=== PATIENT | male | born 1945 | race Caucasian/White ===

== ENCOUNTER 2020-10-05 06:42 | Day surgery (SDC) | payer OTHER ==
[~2020-10-05] VITALS: Ht 162.6 cm; Wt 95.7 kg
[~2020-10-05 06:42] MED LIST: ALLO100 PO; AMLO5 PO; ATOR10 PO; ATOR20 PO; Amox Tr-K Clv1 EAC2 PO; BACLOFEN5 M5 PO; CARV3.125 PO; CARV6.25 PO; CHOL10002 PO; CLIN1TS; CLOBET30L TOP; CLOP75 PO; CODEINE PO; COLCHICINE0.6 MG PO; COLCRYS0.6 MG PO; CYAN500 PO; Fish Oil 10001000 MG PO; GABA800 PO; HYDCHL25 PO; INS70/30I SC; LOPE2C PO; LOSA50 PO; MICROZIDE12.5 M1 PO; ONDA4ODT SL; PANT40 PO; POLY500 PO; Prozac20 MG PO; RAME8 PO; RANI150 PO; TYLECOD3 PO; XANAX PO
[2020-10-05] MEDS ORDERED: CODE30 PO (07:14)
--- NOTE | 2020-10-05 07:44 | NUR ---
History, Chart, Medications and Allergies reviewed before start of procedure. Patient confirms NPO status and agrees with scheduled surgery. Patient is a poor historian. Lungs clear T/O to Auscultation.
--- NOTE | 2020-10-05 07:53 | NUR ---
KNEE HIGH BRIANA HOSE AND CALF PAS APPLIED TO RLE.
--- NOTE | 2020-10-05 08:03 | NUR ---
NOZIN NASAL SHOE SALESMAN X3 AMPULES USED TO CLEAN NARES BILAT PER DR MARINO' ORDER.
--- NOTE | 2020-10-05 08:17 | NUR ---
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
--- NOTE | 2020-10-05 09:03 | NUR ---
PATIENT UP TO BR TO VOID.
--- NOTE | 2020-10-05 14:46 | NUR ---
PT ARRIVE FROM PACU AT APPROX 1215. PT WAS SHIVERING AND REPORTED BEING COLD. WARM BLANKETS PROVIDED. PT ARRIVED ON 3L OXYGEN, GUSTAVO OBSERVING HIM THE PATIENT WOULD FALL ASLEEP WHILE ANSWERING QUESTIONS. PT SHOWED APNEIC PERIODS WHILE OBSERVING HIM RESPIRATIONS WERE 10. SATS REMAINED 98% OR HIGHER. PT HAS HX OF SLEEP APNEA BUT DOES NOT WEAR CPAP. CONT BIOX APPLIED TO MONITOR OXYGEN SATURATION LEVEL. PT COUGHS WHILE SWALLOWING WATER AND REPORTS THAT THAT IS NORMAL FOR HIM. HELD FLUIDS UNTIL PATIENT WAS MORE ALERT. PT CURRENTLY WORKING WITH THERAPY AT THIS TIME. REPORTS PAIN BETTER WITH MOVEMENT. POLAR PATRICIA IS IN PLACE, SCD'S ON.
--- NOTE | 2020-10-05 16:37 | NUR ---
PTS DAUGHTER BROUGHT PT A REGULAR PEPSI. DISCUSSED A DIET INSTEAD DUE TO H/O DIABETES. STATES HE DOES NOT LIKE DIET AND ONLY DRINKS A LITTLE REGULAR ONCE IN AWHILE.
--- NOTE | 2020-10-05 16:55 | NUR ---
SHIFT SUMMARY S/P LEFT TOTAL KNEE ARTHROPLASTY. PT ARRIVED TO FLOOR CONFUSED AND APNEIC ON 3L O2. CURRENTLY PT IS A&O X4. CURRENTLY SLEEPING IN RECLINER AND ON 2L O2 NASAL CANNULA. O2 SATS MAINTAINING IN MID TO HIGH 90'S. WORKED WITH PHYSICAL THERAPY TODAY AND TOLERATED WELL. PTS PAIN WELL MAINTAINED PER EMAR. SCD'S IN PLACE. POLAR PACK APPLIED TO LEFT KNEE. PT TRANSFERRED WELL TO BATHROOM WITH STANDBY ASSIST AND WAS ABLE TO VOID. TOLERATED JELLO, CRACKERS, AND WATER.
[2020-10-06 04:38] LABS: BASOPHILS ABSOLUTE AUTO 0.02 K/mm3 (0.00-0.23); BASOPHILS PERCENT AUTO 0 % (0-2); EOSINOPHILS PERCENT AUTO 0 % (0-6); Hematocrit 40.8 % (37.0-53.0); Hemoglobin 13.7 g/dL (13.5-17.5); IMMATURE GRAN ABSOLUTE AUTO 0.06 K/mm3 (0.00-0.10); IMMATURE GRAN PERCENT AUTO 0 % (0-1); LYMPHOCYTES ABSOLUTE AUTO 0.58 K/mm3 (0.84-5.20); LYMPHOCYTES PERCENT AUTO 4 % (21-46); MONOCYTES ABSOLUTE AUTO 0.84 K/mm3 (0.16-1.47); MONOCYTES PERCENT AUTO 6 % (4-13); Mean Corpuscular HGB 29.9 pg (26.0-34.0); Mean Corpuscular HGB Conc 33.6 g/dL (31.5-36.5); Mean Corpuscular Volume 89 fL (80-100); Mean Platelet Volume 10.2 fL (9.1-12.4); NEUTROPHILS ABSOLUTE AUTO 12.06 K/mm3 (1.96-9.15); NEUTROPHILS PERCENT AUTO 89 % (41-73); Platelet Count 176 K/mm3 (150-400); RDW Coefficient Variation 14.2 % (11.7-14.2); RDW Standard Deviation 46.4 fL (35.1-46.3); Red Blood Cell Count 4.58 M/mm3 (4.30-5.90); White Blood Cell Count 13.56 K/mm3 (4.00-11.30)
[2020-10-06 04:59] LABS: Anion Gap 7 mmol/L (6-16); Blood Urea Nitrogen 15 mg/dL (8-24); Bun/Creatinine Ratio 14.7 (12.0-20.0); CO2, Blood 25 mmol/L (21-32); Calcium, Blood 8.1 mg/dL (8.5-10.1); Chloride, Blood 108 mmol/L (98-108); Creatinine, Blood 1.02 mg/dL (0.60-1.20); Glomerular Filtration Rate >60 (60-); Glucose, Blood 167 mg/dL (70-99); Potassium, Blood 4.5 mmol/L (3.5-5.5); Sodium, Blood 140 mmol/L (136-145)
--- NOTE | 2020-10-06 05:44 | NUR ---
SHIFT SUMMARY POD1 L TKA. VSS. AOX4. PT REPORTS MINIMAL PAIN T/O SHIFT, 2/10 PAIN LEVEL. TOLERATING PO INTAKE, DENIES NAUSEA AND VOMITING. VOIDING ADEQUATELY, DENIES DIFFICULTY/ISSUES. PT TOLERATING AMBULATION TO BATHROOM WITH SBA WITH FWW AND GB. PT DENIES N/T. L KNEE WITH TARAN WRAP, CDI. SCD'S IN PLACED AND POLAR PACK. CALL LIGHT WITHIN REACH. WILL PROVIDE REPORT TO ONCOMING NURSE.
[2020-10-06] MEDS ORDERED: Percocet 5-3251 EACH PO (10:25)
--- NOTE | 2020-10-06 12:51 | NUR ---
SHIFT SUMMARY PT PROVIDED WITH WRITTEN AND VERBAL DISCHARGE INSTRUCTIONS, HE REPORTED UNDERSTANDING. DRESSINGS, SCRIPTS AND ADDITIONAL BRIANA HOSE PROVIDED. PT MEETING ALL GOALS, VOIDING, ALEJANDAR PO, CLEARED THERAPY, PAIN MANAGED AND VSS. PT OFF O2 AND O2 SATURATION 97% ON RA. PT SENT HOME WITH INCENTIVE SPIROMETER AND EDUCATED TO USE. HOME BLOOD THINNER IS PLAVIX, CLARIFIED WITH REJI JAY THAT PT SHOULD CONTINUE AT HOME WITH NO ADDITIONAL BLOOD THINNERS. PT'S DAUGHTER TAYLOR WHO IS CARING FOR HIM WAS NOTIFIED THAT HE SHOULD CONTINUE PLAVIX. PT ESCORTED OUT IN W/C BY JANET STUDENT NURSE.
--- NOTE | 2020-10-06 12:57 | NUR ---
DISCHARGE SUMMARY PT DEMONSTRATED UNDERSTANDING AFTER DISCHARGE TEACHING.PT VSS, PAIN WAS MANAGED,TOLERATED PO AND VOIDED BEFORE DISCHARGE.
== END 2020-10-06 12:55 | disposition home or self-care (01) ==
LOC: ORSCMMR 06:42 → ORD 08:15 → ORSCMMR 08:15 → SURS 12:16 → ORSCMMR 10-06 12:55
PROVIDERS: Orthopaedic Surgery
PROC: 0SRD0JA Replacement of Left Knee Joint with Synthetic Substitute, Uncemented, Open Approach (ICD-10-PCS; principal; 2020-10-05 08:15)
DX: M17.12 Unilateral primary osteoarthritis, left knee (principal); I10 Essential (primary) hypertension; E78.5 Hyperlipidemia, unspecified; I25.2 Old myocardial infarction; G47.33 Obstructive sleep apnea (adult) (pediatric); E11.9 Type 2 diabetes mellitus without complications; Z86.73 Personal history of transient ischemic attack (TIA), and cerebral infarction without residual deficits; E66.01 Morbid (severe) obesity due to excess calories; Z68.36 Body mass index [BMI] 36.0-36.9, adult; G51.0 Bell's palsy; Z79.899 Other long term (current) drug therapy
CPT/HCPCS: 36415; 73560-LT; 80048; 82947; 85025; 94762; 97110; 97116; 97162; A9270; A9270-GY; C1776; J0171; J0690; J0735; J1100; J1885; J2250; J2405; J2704; J2795; J3010; J7120

== ENCOUNTER 2020-10-08 20:00 | Inpatient (IN) | payer OTHER ==
[~2020-10-08] VITALS: Ht 162.6 cm; Wt 96.0 kg
[~2020-10-08 20:00] MED LIST changes: +CODE30 PO; +Percocet 5-3251 EACH PO
[2020-10-08 20:37] LABS: BASOPHILS ABSOLUTE AUTO 0.02 K/mm3 (0.00-0.23); BASOPHILS PERCENT AUTO 0 % (0-2); EOSINOPHILS ABSOLUTE AUTO 0.07 K/mm3 (0.00-0.68); EOSINOPHILS PERCENT AUTO 1 % (0-6); Hematocrit 39.9 % (37.0-53.0); Hemoglobin 13.4 g/dL (13.5-17.5); IMMATURE GRAN ABSOLUTE AUTO 0.06 K/mm3 (0.00-0.10); IMMATURE GRAN PERCENT AUTO 1 % (0-1); LYMPHOCYTES ABSOLUTE AUTO 0.65 K/mm3 (0.84-5.20); LYMPHOCYTES PERCENT AUTO 7 % (21-46); MONOCYTES ABSOLUTE AUTO 0.84 K/mm3 (0.16-1.47); MONOCYTES PERCENT AUTO 9 % (4-13); Mean Corpuscular HGB 29.9 pg (26.0-34.0); Mean Corpuscular HGB Conc 33.6 g/dL (31.5-36.5); Mean Corpuscular Volume 89 fL (80-100); Mean Platelet Volume 9.9 fL (9.1-12.4); NEUTROPHILS ABSOLUTE AUTO 7.91 K/mm3 (1.96-9.15); NEUTROPHILS PERCENT AUTO 83 % (41-73); Platelet Count 153 K/mm3 (150-400); RDW Coefficient Variation 14.2 % (11.7-14.2); RDW Standard Deviation 46.7 fL (35.1-46.3); Red Blood Cell Count 4.48 M/mm3 (4.30-5.90); White Blood Cell Count 9.55 K/mm3 (4.00-11.30)
[2020-10-08 20:58] LABS: Alanine Aminotransfer (ALT/SGP 26 U/L (12-78); Albumin, Blood 3.2 g/dL (3.4-5.0); Albumin/Globulin Ratio 1.1 (0.8-1.8); Alk Phos 103 U/L (50-136); Anion Gap 3 mmol/L (6-16); Aspartate Aminotrans (AST/SGOT 17 U/L (12-37); Bilirubin, Total 0.9 mg/dL (0.1-1.0); Blood Urea Nitrogen 16 mg/dL (8-24); Bun/Creatinine Ratio 18.3 (12.0-20.0); CO2, Blood 30 mmol/L (21-32); Calcium, Blood 8.7 mg/dL (8.5-10.1); Chloride, Blood 104 mmol/L (98-108); Creatinine, Blood 0.88 mg/dL (0.60-1.20); Glomerular Filtration Rate >60 (60-); Glucose, Blood 165 mg/dL (70-99); Potassium, Blood 4.1 mmol/L (3.5-5.5); Sodium, Blood 137 mmol/L (136-145); Total Protein, Blood 6.2 g/dL (6.4-8.2)
[2020-10-08 22:49] LABS: International Normalized Ratio 0.99; Prothrombin Time Results 10.7 Sec (9.7-11.5)
[2020-10-08 23:47] LABS: Source, Urine Catheter
[2020-10-08 23:49] LABS: Bilirubin, Urine Neg (Neg); Blood, Urine Neg (Neg); Glucose Qualitative, Urine Neg (Neg); Ketones, Urine Neg (Neg); Leukocyte Esterase, Urine Neg (Neg); Nitrite, Urine Neg (Neg); Protein, Urine Neg (Neg); Specific Gravity, Urine 1.015 (1.003-1.022); Urobilinogen, Urine NORM (Normal)
[2020-10-09] LABS: Appearance, Urine Clear (Clear); Color, Urine Yellow (P-Yellow)
[2020-10-09 13:16] LABS: BASOPHILS ABSOLUTE AUTO 0.02 K/mm3 (0.00-0.23); BASOPHILS PERCENT AUTO 0 % (0-2); EOSINOPHILS ABSOLUTE AUTO 0.11 K/mm3 (0.00-0.68); EOSINOPHILS PERCENT AUTO 2 % (0-6); Hematocrit 35.6 % (37.0-53.0); Hemoglobin 11.9 g/dL (13.5-17.5); IMMATURE GRAN ABSOLUTE AUTO 0.04 K/mm3 (0.00-0.10); IMMATURE GRAN PERCENT AUTO 1 % (0-1); LYMPHOCYTES ABSOLUTE AUTO 0.63 K/mm3 (0.84-5.20); LYMPHOCYTES PERCENT AUTO 10 % (21-46); MONOCYTES PERCENT AUTO 8 % (4-13); Mean Corpuscular HGB Conc 33.4 g/dL (31.5-36.5); Mean Corpuscular Volume 90 fL (80-100); Mean Platelet Volume 9.8 fL (9.1-12.4); NEUTROPHILS ABSOLUTE AUTO 5.25 K/mm3 (1.96-9.15); NEUTROPHILS PERCENT AUTO 80 % (41-73); Platelet Count 137 K/mm3 (150-400); RDW Coefficient Variation 14.1 % (11.7-14.2); RDW Standard Deviation 46.9 fL (35.1-46.3); Red Blood Cell Count 3.97 M/mm3 (4.30-5.90); White Blood Cell Count 6.55 K/mm3 (4.00-11.30)
[2020-10-09 13:29] LABS: Anion Gap 3 mmol/L (6-16); Blood Urea Nitrogen 17 mg/dL (8-24); Bun/Creatinine Ratio 18.2 (12.0-20.0); CO2, Blood 30 mmol/L (21-32); Calcium, Blood 8.3 mg/dL (8.5-10.1); Chloride, Blood 105 mmol/L (98-108); Creatinine, Blood 0.93 mg/dL (0.60-1.20); Glomerular Filtration Rate >60 (60-); Glucose, Blood 201 mg/dL (70-99); Potassium, Blood 4.1 mmol/L (3.5-5.5); Sodium, Blood 138 mmol/L (136-145)
--- NOTE | 2020-10-09 17:30 | NUR ---
SHIFT SUMMARY PT A/O X4. VITALS STABLE. MEDICATED FOR PAIN PER EMAR. PT REPORTS THAT PAIN IS MORE LOCALIZED TO THE SURGICAL SITE AT THIS TIME. PT UP IN WITH WALKER GAITBELT AND ONE ASSIST. WILL REPORT TO ONCOMING RN.
--- NOTE | 2020-10-09 21:11 | NUR ---
PT AGREES TO ALLOW STUDENT TO PARTICIPATE IN CARE
--- NOTE | 2020-10-10 05:16 | NUR ---
SHIFT SUMMARY: CELLULITIS LEFT KNEE PAIN AND ABX MANAGEMENT PT IS A&OX4 OOB BRP 1P ASSIST W/ FWW,IV RIGHT FA PATENT INFUSING WELL NO SS/SSX OF ACUTE DISTRESS, DRESSING C/D/I. LEFT KNEE HAS AQUACELL DRESSING C/D/I WITH OUTLINE OF PARAMETERS INKED, SMALL BAND AID RIGHT LOWER BACK PT REPORT SKIN TAG REMOVAL C/D/I, CALL LIGHT WITHIN REACH PT AWARE OF LIMITATIONS WILL NOTIFY STAFF FOR ASSISTANCE.
[2020-10-10 11:41] LABS: Vancomycin, Trough 14.6 ug/mL (5.0-10.0)
[2020-10-10 13:39] LABS: BASOPHILS ABSOLUTE AUTO 0.02 K/mm3 (0.00-0.23); BASOPHILS PERCENT AUTO 0 % (0-2); EOSINOPHILS ABSOLUTE AUTO 0.22 K/mm3 (0.00-0.68); EOSINOPHILS PERCENT AUTO 3 % (0-6); Hematocrit 36.8 % (37.0-53.0); Hemoglobin 12.1 g/dL (13.5-17.5); IMMATURE GRAN ABSOLUTE AUTO 0.04 K/mm3 (0.00-0.10); IMMATURE GRAN PERCENT AUTO 1 % (0-1); LYMPHOCYTES ABSOLUTE AUTO 0.74 K/mm3 (0.84-5.20); LYMPHOCYTES PERCENT AUTO 11 % (21-46); MONOCYTES ABSOLUTE AUTO 0.71 K/mm3 (0.16-1.47); MONOCYTES PERCENT AUTO 10 % (4-13); Mean Corpuscular HGB 29.7 pg (26.0-34.0); Mean Corpuscular HGB Conc 32.9 g/dL (31.5-36.5); Mean Corpuscular Volume 90 fL (80-100); Mean Platelet Volume 9.5 fL (9.1-12.4); NEUTROPHILS ABSOLUTE AUTO 5.28 K/mm3 (1.96-9.15); NEUTROPHILS PERCENT AUTO 75 % (41-73); Platelet Count 169 K/mm3 (150-400); RDW Standard Deviation 46.3 fL (35.1-46.3); Red Blood Cell Count 4.08 M/mm3 (4.30-5.90); White Blood Cell Count 7.01 K/mm3 (4.00-11.30)
[2020-10-10 13:56] LABS: Anion Gap 1 mmol/L (6-16); Blood Urea Nitrogen 16 mg/dL (8-24); Bun/Creatinine Ratio 15.7 (12.0-20.0); CO2, Blood 32 mmol/L (21-32); Calcium, Blood 8.2 mg/dL (8.5-10.1); Chloride, Blood 102 mmol/L (98-108); Creatinine, Blood 1.02 mg/dL (0.60-1.20); Glomerular Filtration Rate >60 (60-); Glucose, Blood 149 mg/dL (70-99); Potassium, Blood 4.1 mmol/L (3.5-5.5); Sodium, Blood 135 mmol/L (136-145)
--- NOTE | 2020-10-10 15:29 | NUR ---
SHIFT SUMMARY PT HAS HAD STABLE VITALS THROUGHOUT THE SHIFT. PAIN HAS BEEN TOLERABLE THROUGHOUT THE SHIFT AND HE HAS NOT REQUIRED ANY MEDICATIONS FOR PAIN MANAGEMENT. ICE WAS PLACED ON THE SURGICAL SITE TO RELIEVE SOME DISCOMFORT FOR SWELLING. PT ABLE TO AMBULATE IN THE HALLWAYS AND WAS UP TO THE BATHROOM SEVERAL TIMES WITH STAND BY ASSIST. PLAN IS TO CONTINUE TREATING INFECTION, AND MANAGE PAIN. PT VOIDING WELL. WILL REPORT TO ONCOMING RN.
--- NOTE | 2020-10-11 04:58 | NUR ---
shift summary: POD#6 Left knee replacement admitted for cellulitis, marked borders medically PT A&OX4 OOB BRP 1P ASSIST TRANSFERS W/ FWW GAIT WEAK SLOW STEADY, LEFT THIGH AND KNEE NOTICIABLY MORE SWOLLEN. PT REPORTS INCREASED PAIN SINCE TRANSFER FROM CHAIR TO BED, DRESSING IS C/D/I ELEVATED W/COLD PACK PAIN MEDICATION REPORTS MINOR RELIEF, IV DRESSING C/D/I INFUSING NS@25HR. HOB @30 CALL LIGHT WITHIN REACH.
--- NOTE | 2020-10-11 19:27 | NUR ---
SUMMARY: PT ADMITTED FOR L KNEE CELLULITIS. VSS, A/O. WITH ASSESSMENT OF THE OUTLINING ON PT'S L KNEE, REDNESS APPEARS TO HAVE DECREASED. KNEE DOES APPEAR SWOLLEN AND IS HOT TO THE TOUCH. PT IS MOVING WELL AND TOOK X2 WALKS IN THE [place] TODAY, SBA WITH FWW AND GAIT BELT. REPEAT CT OF KNEE COMPLETED TONIGHT AND ABX INFUSED. PAIN SEEMS TO BE WELL MANAGED WITH PERCOCET. PT USES CALL LIGHT, NO SAFETY CONCERNS AT THIS TIME. REPORT PASSED TO NEGRO SANDERS.
--- NOTE | 2020-10-12 06:09 | NUR ---
SUMMARY PT NOTED TO HAVE SLEEP APNEA.STATES WAS DX BUT WILL NOT WEAR CPAP. VERB TRIED AND COULD NOT TOLERATE.PT TOLERATING 02 2 L N/C. CONT BIOX ON.DISCUSSED RISKS WITH PT AND ADVISED OF NEED TO FOLLOW UP WITH PCP.PT VERB UNDERSTANDING OF RISKS.
[2020-10-12 07:54] LABS: BASOPHILS ABSOLUTE AUTO 0.04 K/mm3 (0.00-0.23); BASOPHILS PERCENT AUTO 1 % (0-2); EOSINOPHILS ABSOLUTE AUTO 0.15 K/mm3 (0.00-0.68); EOSINOPHILS PERCENT AUTO 3 % (0-6); Hematocrit 37.5 % (37.0-53.0); Hemoglobin 12.3 g/dL (13.5-17.5); IMMATURE GRAN ABSOLUTE AUTO 0.05 K/mm3 (0.00-0.10); IMMATURE GRAN PERCENT AUTO 1 % (0-1); LYMPHOCYTES ABSOLUTE AUTO 0.87 K/mm3 (0.84-5.20); LYMPHOCYTES PERCENT AUTO 14 % (21-46); MONOCYTES ABSOLUTE AUTO 0.64 K/mm3 (0.16-1.47); MONOCYTES PERCENT AUTO 11 % (4-13); Mean Corpuscular HGB 29.8 pg (26.0-34.0); Mean Corpuscular HGB Conc 32.8 g/dL (31.5-36.5); Mean Corpuscular Volume 91 fL (80-100); Mean Platelet Volume 9.7 fL (9.1-12.4); NEUTROPHILS ABSOLUTE AUTO 4.37 K/mm3 (1.96-9.15); NEUTROPHILS PERCENT AUTO 71 % (41-73); Platelet Count 183 K/mm3 (150-400); RDW Coefficient Variation 13.9 % (11.7-14.2); RDW Standard Deviation 46.3 fL (35.1-46.3); Red Blood Cell Count 4.13 M/mm3 (4.30-5.90); White Blood Cell Count 6.12 K/mm3 (4.00-11.30)
[2020-10-12 08:14] LABS: Albumin, Blood 2.7 g/dL (3.4-5.0); Anion Gap 2 mmol/L (6-16); Blood Urea Nitrogen 17 mg/dL (8-24); Bun/Creatinine Ratio 16.7 (12.0-20.0); CO2, Blood 31 mmol/L (21-32); Calcium, Blood 8.1 mg/dL (8.5-10.1); Chloride, Blood 103 mmol/L (98-108); Creatinine, Blood 1.02 mg/dL (0.60-1.20); Glomerular Filtration Rate >60 (60-); Glucose, Blood 142 mg/dL (70-99); Phosphorus, Blood 2.5 mg/dL (2.5-4.9); Potassium, Blood 4.1 mmol/L (3.5-5.5); Sodium, Blood 136 mmol/L (136-145)
--- NOTE | 2020-10-12 10:38 | NUR ---
Permission to care: Patient gave this student nurse permission to provide care today 10/12/20.
[2020-10-12 11:51] LABS: Glucose, Body Fluid 58 mg/dL; Protein, Body Fluid 3.9 g/dL
[2020-10-12 11:53] LABS: BODY FLUID RBC 0.377 M/mm3 (0-0); RBC Count, Synovial Fluid 377000 /mm3 (0-0); WBC Count, Synovial Fluid 4242 /mm3 (0-180)
[2020-10-12 12:10] LABS: Appearance, Synovial Fluid Bloody (Clear); Body Fluid Crystals NEG (NEGATIVE); Color, Synovial Fluid Red (None-P Yel)
[2020-10-12 12:14] LABS: Creatinine, Blood 0.92 mg/dL (0.60-1.20); Vancomycin, Trough 16.9 ug/mL (5.0-10.0)
[2020-10-12 12:32] LABS: Lymphs, Synovial Fluid 1 % (0-15); Monocytes/Macrophages, Synovia 5 % (0-65); Neutrophils, Synovial Fluid 94 % (0-24)
--- NOTE | 2020-10-12 17:57 | NUR ---
SUMMARY: NO ACUTE CHANGE TODAY. VSS, A/O. SURGICAL SITE WNL. PT WALKED IN HALLS WITH PT/OT, MOVES WELL. ASSISTED DR. GUTIERREZ WITH FLUID ASPIRATION FROM L KNEE AT BEDSIDE, PUNCTURE SITE DRESSED WITH GAUZE AND SURGICAL SITE DRESSED WITH ADHESIVE DRESSING AND TARAN WRAP. PT PAIN SEEMS TO BE MANANGED WELL, L KNEE ICED AND ELEVATED IN RECLINER OFTEN TODAY. NO CONCERNS, WILL REPORT TO LAQUITA TOM.
--- NOTE | 2020-10-13 04:34 | NUR ---
SHIFT SUMMARY: PT A&O X4. LEFT KNEE REMAINS SWOLLEN AND WARM TO TOUCH. NO REDNESS NOTED. GAUZE IN PLACE TO ASPIRATION SITE WITH A SCANT AMOUNT OF SEROUS FLUID PRESENT. ADHESIVE SURGICAL DRESSING AND TARAN WRAP C/D/I. LEFT KNEE HAS BEEN ELEVATED WITH SEVERAL ICE PACKS IN PLACE FOR COMFORT. PT AMBULATED HALLWAY ONCE THIS SHIFT. OUT OF BED TO BATHROOM SEVERAL TIMES WITH SBA+FWW/GB. TOLERATING ACTIVITY WELL. PAIN BEING MANAGED WITH 10MG PERCOCET Q6 PER EMAR. PLAN TO CONTINUE WITH IV ABX AT THIS TIME.
--- NOTE | 2020-10-13 15:00 | NUR ---
SHIFT SUMMARY: POD 8 LEFT KNEE REPAIR PATIENT IS ALERT AND ORIENTED X4. VS ARE WNL AND IS ON RA. PATIENT DENIES PAIN BUT HAS NARCOTICS AVAILABLE PER EMAR PRN. THE ADHESIVE DRESSING IS C/D/I ON THE LEFT KNEE. DENIES NUMBNESS AND TINGLING IN ALL EXTREMITIES. HE IS A SBA WITH FWW AND GAIT BELT. CALLS APPROPRIATELY. IS VOIDING AND TOLERATING PO INTAKE. CALL LIGHT WITHIN REACH. PATIENT IS SITTING IN CHAIR CURRENTLY WATCHING TV. THE PLAN IS TO HAVE INFECTIOUS DISEASE VISIT HIM TOMORROW AND POSSIBLY DISCHARGE HOME.
--- NOTE | 2020-10-14 04:47 | NUR ---
SHIFT SUMMARY POD9 L TKA W/ TARAN WRAPPED. READMITTED DUE TO INFLAMATION ON L KNEE. AOX4. VSS. PT REPORTS MIN-MOD PAIN T/O SHIFT. PAIN MANAGED WITH 10MG PERCOCET Q6. IV ON R HAND WAS DC'D BECAUSE PT REPORT BURNING PAIN. NEW IV PLACED ON RIGHT AC. TOLERATING PO INTAKE DENIES N/V. AMBULATING W/ 1 MIN ASSIST, FWW AND GB. VOIDING WELL DENIES DIFFICULTY. PT REPORTS CHRONIC N/T RELATED TO NEUROPATHY BUT NOT MORE THAN ORDINARY. PT COMFORTABLE IN BED AT THIS TIME. USE CALL LIGHT APPROPRIATELY. ABX ADMINISTERED ON R AC IV. CALL LIGHT W/ IN REACH WILL RPOVIDE REPORT TO ONCOMING AM NURSE.
[2020-10-14 09:32] LABS: BASOPHILS ABSOLUTE AUTO 0.03 K/mm3 (0.00-0.23); BASOPHILS PERCENT AUTO 0 % (0-2); EOSINOPHILS PERCENT AUTO 1 % (0-6); Hematocrit 38.4 % (37.0-53.0); Hemoglobin 12.5 g/dL (13.5-17.5); IMMATURE GRAN ABSOLUTE AUTO 0.07 K/mm3 (0.00-0.10); IMMATURE GRAN PERCENT AUTO 1 % (0-1); LYMPHOCYTES PERCENT AUTO 8 % (21-46); MONOCYTES ABSOLUTE AUTO 0.66 K/mm3 (0.16-1.47); MONOCYTES PERCENT AUTO 9 % (4-13); Mean Corpuscular HGB 29.5 pg (26.0-34.0); Mean Corpuscular HGB Conc 32.6 g/dL (31.5-36.5); Mean Corpuscular Volume 91 fL (80-100); Mean Platelet Volume 9.4 fL (9.1-12.4); NEUTROPHILS ABSOLUTE AUTO 5.95 K/mm3 (1.96-9.15); NEUTROPHILS PERCENT AUTO 80 % (41-73); Platelet Count 199 K/mm3 (150-400); RDW Coefficient Variation 13.8 % (11.7-14.2); Red Blood Cell Count 4.24 M/mm3 (4.30-5.90); White Blood Cell Count 7.41 K/mm3 (4.00-11.30)
[2020-10-14 09:40] LABS: Anion Gap -1 mmol/L (6-16); Blood Urea Nitrogen 18 mg/dL (8-24); Bun/Creatinine Ratio 18.2 (12.0-20.0); CO2, Blood 32 mmol/L (21-32); Calcium, Blood 8.3 mg/dL (8.5-10.1); Chloride, Blood 106 mmol/L (98-108); Creatinine, Blood 0.99 mg/dL (0.60-1.20); Glomerular Filtration Rate >60 (60-); Glucose, Blood 199 mg/dL (70-99); Sodium, Blood 137 mmol/L (136-145)
--- NOTE | 2020-10-14 18:20 | NUR ---
SHIFT SUMMARY PT A&OX4, VSS, R KNEE AQUACEL/TARAN WRAP CDI, ICE ON/OFF T/O SHIFT, UP TO CHAIR T/O SHIFT, ALEJANDRA PO, PAIN MANAGED WITH 10 MG PERC Q6 PRN, AMBULATES WITH FWW/GB TO BRP/HALLWAY, VOIDING WELL. WILL REPORT TO ONCOMING NOC RN.
--- NOTE | 2020-10-15 04:18 | NUR ---
SHIFT SUMMARY A/OX4, PLEASANT AND COOPERATIVE WITH CARE. SLEPT T/O THE NIGHT, UP TO BATHROOM WITH SBA AND FWW/GB. DENIES PAIN OR SOB. VSS, NO ACUTE CHANGES AT THIS TIME. POSS D/C TODAY. WILL CONTINUE TO MONITOR AND REPORT TO ONCOMING RN.
--- NOTE | 2020-10-15 07:34 | NUR ---
pt sleeping in recliner
--- NOTE | 2020-10-15 09:30 | NUR ---
dr solares by to see pt also pt seen by physical therapy
--- NOTE | 2020-10-15 09:49 | NUR ---
dr van by to see pt ice applied to knee
[2020-10-15] MEDS ORDERED: AMOCLA875 PO (11:12)
--- NOTE | 2020-10-15 11:30 | NUR ---
olegario instructions reviewed with pt verbalized rx called to [facility] pt called his daughter dressings given
--- NOTE | 2020-10-15 12:05 | NUR ---
wc escort to car no acute changes pt has to go to dermatology appointment
[2020-11-09] MEDS ORDERED: HYDROCODONE-AC1 EA10 PO (09:00)
== END 2020-10-15 12:22 | disposition home or self-care (01) | DRG 920 ==
LOC: ER 20:00 → SURS 10-09 02:36
PROVIDERS: Emergency Medicine; Family Medicine; Orthopaedic Surgery; Physician Assistant; ADMIT Internal Medicine
PROC: 0S9D3ZX Drainage of Left Knee Joint, Percutaneous Approach, Diagnostic (ICD-10-PCS; principal; 2020-10-12)
DX: M96.840 Postprocedural hematoma of a musculoskeletal structure following a musculoskeletal system procedure (principal); T81.49XA Infection following a procedure, other surgical site, initial encounter; L03.116 Cellulitis of left lower limb; Y83.8 Other surgical procedures as the cause of abnormal reaction of the patient, or of later complication, without mention of misadventure at the time of the procedure; M10.9 Gout, unspecified; M19.90 Unspecified osteoarthritis, unspecified site; N40.0 Benign prostatic hyperplasia without lower urinary tract symptoms; E78.00 Pure hypercholesterolemia, unspecified; F43.10 Post-traumatic stress disorder, unspecified; E11.42 Type 2 diabetes mellitus with diabetic polyneuropathy; E66.9 Obesity, unspecified; I10 Essential (primary) hypertension; K58.9 Irritable bowel syndrome, unspecified; Z88.6 Allergy status to analgesic agent; Z88.8 Allergy status to other drugs, medicaments and biological substances; Z86.73 Personal history of transient ischemic attack (TIA), and cerebral infarction without residual deficits; Z85.038 Personal history of other malignant neoplasm of large intestine; Z90.49 Acquired absence of other specified parts of digestive tract; Z87.891 Personal history of nicotine dependence; Z79.899 Other long term (current) drug therapy; Z79.891 Long term (current) use of opiate analgesic
CPT/HCPCS: 36415; 71045; 73560-LT; 73701; 80048; 80053; 80069; 80202; 81003; 82565; 82945; 82947; 83605; 84157; 85025; 85610; 85651; 86140; 86850; 86900; 86901; 87040; 87070; 87075; 87086; 87205; 89051; 89060; 92610; 93005; 93010; 94762; 96365; 96367; 96375; 97110; 97110-CQ; 97116; 97116-CQ; 97162; 97165; 97535; 99285-25; A9270; J0692; J1170; J1650; J1815; J2543; J3370; J7040; J7050; Q9967

== ENCOUNTER 2020-11-10 10:59 | Day surgery (SDC) | payer OTHER ==
[~2020-11-10] VITALS: Ht 162.6 cm; Wt 90.9 kg
[~2020-11-10 10:59] MED LIST changes: +AMOCLA875 PO; +HYDROCODONE-AC1 EA10 PO
--- NOTE | 2020-11-10 11:21 | NUR ---
INTO [facility] ADMISSION TO UNIT STARTED. Ambulatory in Day Surgery. History, Chart, Medications and Allergies reviewed before start of procedure. Patient confirms NPO status and agrees with scheduled surgery. Lungs clear T/O to Auscultation.
--- NOTE | 2020-11-10 13:51 | NUR ---
11/10/20 1351 ASHISH,NESTOR MARINO PERFORMED LEFT KNEE MANIPULATION ON PT [facility], X2 SIDE RAILS SECURED.
--- NOTE | 2020-11-10 15:46 | NUR ---
Patient up to Ambulate independently. Gait steady. Discharge instructions reviewed with patient. Patient verbalizes understanding. Copy given to patient to take home.Lungs clear T/O to Auscultation. Patient States Post-Procedure ride home has been arranged. Discharged via wheelchair to private car for ride home.
== END 2020-11-10 15:48 | disposition home or self-care (01) ==
LOC: ORSCMMR 10:59 → ORD 10:59 → ORSCMMR 11:00 → ORD 12:30
PROVIDERS: Orthopaedic Surgery
PROC: 0SNDXZZ Release Left Knee Joint, External Approach (ICD-10-PCS; principal; 2020-11-10 13:30)
DX: Z96.652 Presence of left artificial knee joint (principal); M17.12 Unilateral primary osteoarthritis, left knee; I50.9 Heart failure, unspecified; E11.9 Type 2 diabetes mellitus without complications; I10 Essential (primary) hypertension; G47.33 Obstructive sleep apnea (adult) (pediatric); Z79.01 Long term (current) use of anticoagulants; Z79.899 Other long term (current) drug therapy
CPT/HCPCS: 82947; A9270; J0690; J1170; J2704; J3010; J7120

== ENCOUNTER 2022-06-12 19:44 | Emergency (ER) | payer OTHER ==
[~2022-06-12] VITALS: Ht 162.6 cm; Wt 99.3 kg
[2022-06-12 20:29] LABS: BASOPHILS ABSOLUTE AUTO 0.05 K/mm3 (0.00-0.23); BASOPHILS PERCENT AUTO 1 % (0-2); EOSINOPHILS ABSOLUTE AUTO 0.08 K/mm3 (0.00-0.68); EOSINOPHILS PERCENT AUTO 1 % (0-6); Hematocrit 49.2 % (37.0-53.0); IMMATURE GRAN ABSOLUTE AUTO 0.12 K/mm3 (0.00-0.10); IMMATURE GRAN PERCENT AUTO 1 % (0-1); LYMPHOCYTES ABSOLUTE AUTO 1.32 K/mm3 (0.84-5.20); LYMPHOCYTES PERCENT AUTO 12 % (21-46); MONOCYTES ABSOLUTE AUTO 0.78 K/mm3 (0.16-1.47); MONOCYTES PERCENT AUTO 7 % (4-13); Mean Corpuscular HGB 30.6 pg (26.0-34.0); Mean Corpuscular HGB Conc 34.6 g/dL (31.5-36.5); Mean Corpuscular Volume 89 fL (80-100); Mean Platelet Volume 9.2 fL (9.1-12.4); NEUTROPHILS ABSOLUTE AUTO 8.36 K/mm3 (1.96-9.15); NEUTROPHILS PERCENT AUTO 78 % (41-73); Platelet Count 152 K/mm3 (150-400); RDW Coefficient Variation 14.1 % (11.7-14.2); RDW Standard Deviation 45.5 fL (35.1-46.3); Red Blood Cell Count 5.55 M/mm3 (4.30-5.90); White Blood Cell Count 10.71 K/mm3 (4.00-11.30)
[2022-06-12 20:47] LABS: Albumin, Blood 3.9 g/dL (3.4-5.0); Albumin/Globulin Ratio 1.3 (0.8-1.8); Bilirubin, Total 0.5 mg/dL (0.1-1.0); Bun/Creatinine Ratio 19.2 (12.0-20.0); Calcium, Blood 8.9 mg/dL (8.5-10.1); Creatinine, Blood 1.3 mg/dL (0.60-1.20); Globulin, Blood 3.1 g/dL (2.2-4.0); Potassium, Blood 4.1 mmol/L (3.5-5.5)
[2022-06-12 23:08] LABS: Source, Urine Clean Catch
[2022-06-12 23:18] LABS: Appearance, Urine Clear (Clear); Bilirubin, Urine Neg (Neg); Blood, Urine 5+ (Neg); Color, Urine Pale Yellow (P-Yellow); Glucose Qualitative, Urine 1+ (Neg); Ketones, Urine Neg (Neg); Leukocyte Esterase, Urine Neg (Neg); Nitrite, Urine Neg (Neg); Protein, Urine Neg (Neg); Urobilinogen, Urine NORM (Normal)
[2022-06-12 23:28] LABS: Bacteria Few /hpf; Red Blood Cells, Urine 0-2 /hpf (0-2); Squamous Epithelial Cells Rare /hpf (Few); White Blood Cells, Urine 25-50 /hpf (0-5)
[2022-06-13] MEDS ORDERED: TAMS.4ER PO (00:42)
[2022-06-13] MEDS ORDERED: IBUP400 PO (00:42)
== END 2022-06-13 00:58 | disposition home or self-care (01) ==
LOC: ER 19:44
PROVIDERS: Student in an Organized Health Care Education/Training Program
DX: N13.2 Hydronephrosis with renal and ureteral calculous obstruction (principal); E11.9 Type 2 diabetes mellitus without complications; K21.9 Gastro-esophageal reflux disease without esophagitis; M10.9 Gout, unspecified; I10 Essential (primary) hypertension; Z79.899 Other long term (current) drug therapy; Z88.5 Allergy status to narcotic agent; Z88.8 Allergy status to other drugs, medicaments and biological substances; Z87.891 Personal history of nicotine dependence
CPT/HCPCS: 36415; 74176; 80053; 81001; 85025; J1885; J2405; J7030

== ENCOUNTER 2022-07-07 07:46 | Day surgery (SDC) | payer OTHER ==
[~2022-07-07] VITALS: Ht 165.1 cm; Wt 102.3 kg
[~2022-07-07 07:46] MED LIST changes: +IBUP400 PO; +TAMS.4ER PO
[2022-07-07] MEDS ORDERED: NOVOLOG100 UNIT/2 SC (08:31)
--- NOTE | 2022-07-07 10:55 | NUR ---
07/07/22 1055 Allyson Emmanuel O2 TRIAL FROM 15L TO 10L. 02 SAT 99%.
--- NOTE | 2022-07-07 11:43 | NUR ---
07/07/22 1143 Allyson Emmanuel PATIENT SITTING IN RECLINER DRINKING AND EATING WITHOUT ANY NAUSEA. DAUGHTER AT BEDSIDE.
== END 2022-07-07 12:35 | disposition home or self-care (01) ==
LOC: ORSCSDS 07:46
PROVIDERS: Surgery
PROC: 3E0M05Z Introduction of Adhesion Barrier into Peritoneal Cavity, Open Approach (ICD-10-PCS; principal; 2022-07-07 09:30)
PROC: 0WUF0JZ Supplement Abdominal Wall with Synthetic Substitute, Open Approach (ICD-10-PCS; principal; 2022-07-07 09:30)
DX: K42.0 Umbilical hernia with obstruction, without gangrene (principal); I10 Essential (primary) hypertension; I25.2 Old myocardial infarction; E78.5 Hyperlipidemia, unspecified; G47.33 Obstructive sleep apnea (adult) (pediatric); E11.9 Type 2 diabetes mellitus without complications; Z86.73 Personal history of transient ischemic attack (TIA), and cerebral infarction without residual deficits; F41.8 Other specified anxiety disorders; F43.10 Post-traumatic stress disorder, unspecified; E66.01 Morbid (severe) obesity due to excess calories; Z68.37 Body mass index [BMI] 37.0-37.9, adult; Z85.038 Personal history of other malignant neoplasm of large intestine; Z79.4 Long term (current) use of insulin; Z79.899 Other long term (current) drug therapy
CPT/HCPCS: 82947; A9270; C1781; J1100; J2370; J2405; J2704; J2795; J3010; J7120

== ENCOUNTER 2024-03-02 16:23 | Emergency (ER) | payer OTHER ==
[~2024-03-02] VITALS: Ht 162.6 cm; Wt 99.8 kg
[~2024-03-02 16:23] MED LIST changes: +NOVOLOG100 UNIT/2 SC
[2024-03-02 16:29] VITALS: BP 147/84
[2024-03-02 16:59] LABS: BASOPHILS ABSOLUTE AUTO 0.04 K/mm3 (0.00-0.23); BASOPHILS PERCENT AUTO 0 % (0-2); EOSINOPHILS ABSOLUTE AUTO 0.01 K/mm3 (0.00-0.68); EOSINOPHILS PERCENT AUTO 0 % (0-6); Hematocrit 49.7 % (37.0-53.0); Hemoglobin 17.2 g/dL (13.5-17.5); IMMATURE GRAN ABSOLUTE AUTO 0.04 K/mm3 (0.00-0.10); IMMATURE GRAN PERCENT AUTO 0 % (0-1); LYMPHOCYTES ABSOLUTE AUTO 0.61 K/mm3 (0.84-5.20); LYMPHOCYTES PERCENT AUTO 6 % (21-46); MONOCYTES ABSOLUTE AUTO 0.74 K/mm3 (0.16-1.47); MONOCYTES PERCENT AUTO 7 % (4-13); Mean Corpuscular HGB 30.4 pg (26.0-34.0); Mean Corpuscular HGB Conc 34.6 g/dL (31.5-36.5); Mean Corpuscular Volume 88 fL (80-100); Mean Platelet Volume 9.5 fL (9.1-12.4); NEUTROPHILS ABSOLUTE AUTO 9.42 K/mm3 (1.96-9.15); NEUTROPHILS PERCENT AUTO 87 % (41-73); Platelet Count 143 K/mm3 (150-400); RDW Coefficient Variation 13.3 % (11.7-14.2); RDW Standard Deviation 43.2 fL (35.1-46.3); Red Blood Cell Count 5.66 M/mm3 (4.30-5.90); White Blood Cell Count 10.86 K/mm3 (4.00-11.30)
[2024-03-02 17:19] LABS: Albumin, Blood 3.5 g/dL (3.4-5.0); Albumin/Globulin Ratio 1.2 (0.8-1.8); Bilirubin, Total 1.4 mg/dL (0.1-1.0); Bun/Creatinine Ratio 11.1 (12.0-20.0); Calcium, Blood 8.8 mg/dL (8.5-10.1); Creatinine, Blood 1.08 mg/dL (0.60-1.20); Potassium, Blood 4.1 mmol/L (3.5-5.5); Total Protein, Blood 6.5 g/dL (6.4-8.2)
== END 2024-03-02 17:41 | disposition home or self-care (01) ==
LOC: ER 16:23
PROVIDERS: Student in an Organized Health Care Education/Training Program
DX: U07.1 COVID-19 (principal); I10 Essential (primary) hypertension; E11.40 Type 2 diabetes mellitus with diabetic neuropathy, unspecified; K21.9 Gastro-esophageal reflux disease without esophagitis; E78.00 Pure hypercholesterolemia, unspecified; Z87.891 Personal history of nicotine dependence; Z88.8 Allergy status to other drugs, medicaments and biological substances; Z88.5 Allergy status to narcotic agent; Z79.899 Other long term (current) drug therapy; Z79.4 Long term (current) use of insulin
CPT/HCPCS: 71046; 80053; 84484; 85025; 93005; 93010; 99285-25

== ENCOUNTER 2025-05-13 22:47 | Emergency (ER) | payer OTHER ==
[~2025-05-13] VITALS: Ht 162.6 cm; Wt 108.0 kg
[2025-05-13] MEDS ORDERED: Ondansetron HCl 2 MG / ML 2ML Vial IV ONE (23:25)
[2025-05-13 23:37] LABS: BASOPHILS ABSOLUTE AUTO 0.05 K/mm3 (0.00-0.23); BASOPHILS PERCENT AUTO 1 % (0-2); EOSINOPHILS ABSOLUTE AUTO 0.05 K/mm3 (0.00-0.68); EOSINOPHILS PERCENT AUTO 1 % (0-6); Hematocrit 48.2 % (37.0-53.0); Hemoglobin 16.4 g/dL (13.5-17.5); IMMATURE GRAN ABSOLUTE AUTO 0.05 K/mm3 (0.00-0.10); IMMATURE GRAN PERCENT AUTO 1 % (0-1); LYMPHOCYTES ABSOLUTE AUTO 0.99 K/mm3 (0.84-5.20); LYMPHOCYTES PERCENT AUTO 9 % (21-46); MONOCYTES ABSOLUTE AUTO 0.83 K/mm3 (0.16-1.47); MONOCYTES PERCENT AUTO 8 % (4-13); Mean Corpuscular HGB Conc 34.0 g/dL (31.5-36.5); Mean Corpuscular Volume 90 fL (80-100); NEUTROPHILS ABSOLUTE AUTO 8.72 K/mm3 (1.96-9.15); NEUTROPHILS PERCENT AUTO 81 % (41-73); NRBC ABSOLUTE 0.00 K/mm3 (0.00-0.02); NRBC Auto 0.0 /100 WBC (0.0-0.2); Platelet Count 159 K/mm3 (150-400); RDW Coefficient Variation 13.2 % (11.7-14.2); RDW Standard Deviation 43.5 fL (35.1-46.3)
[2025-05-14 00:02] LABS: Alanine Aminotransfer (ALT/SGP 39.0 U/L (12-78); Albumin, Blood 3.7 g/dL (3.4-5.0); Albumin/Globulin Ratio 1.2 (0.8-1.8); Anion Gap 8.0 mmol/L (3-11); Aspartate Aminotrans (AST/SGOT 27.0 U/L (12-37); Bilirubin, Total 0.7 mg/dL (0.1-1.0); Blood Urea Nitrogen 18.0 mg/dL (8-24); CO2, Blood 26.0 mmol/L (21-32); Calcium, Blood 9.1 mg/dL (8.5-10.1); Chloride, Blood 108.0 mmol/L (98-108); Creatinine, Blood 1.31 mg/dL (0.60-1.20); Globulin, Blood 3.2 g/dL (2.2-4.0); Glucose, Blood 196.0 mg/dL (70-99); Potassium, Blood 4.2 mmol/L (3.5-5.5); Sodium, Blood 138.0 mmol/L (136-145); Total Protein, Blood 6.9 g/dL (6.4-8.2)
[2025-05-14 01:08] VITALS: BP 169/99
[2025-05-14 01:09] LABS: Source, Urine Clean Catch
[2025-05-14 01:20] LABS: Bilirubin, Urine Neg (Neg); Glucose Qualitative, Urine Neg (Neg); Ketones, Urine Neg (Neg); Leukocyte Esterase, Urine Neg (Neg); Protein, Urine Neg (Neg); Specific Gravity, Urine 1.020 (1.003-1.022); Urobilinogen, Urine NORM (Normal)
[2025-05-14 01:30] LABS: Color, Urine Yellow (P-Yellow)
[2025-05-14 01:31] LABS: Red Blood Cells, Urine 25-50 /hpf (0-2); White Blood Cells, Urine 0-2 /hpf (0-5)
[2025-05-14] MEDS ORDERED: Ketorolac Tromethamine 15mg Vial IV ONE (02:00)
[2025-05-14] MEDS ORDERED: RX Prepack 6 Tabs Oxycodone 5mg UD ONE (02:00)
== END 2025-05-14 02:32 | disposition home or self-care (01) ==
LOC: ER 22:47
PROVIDERS: Student in an Organized Health Care Education/Training Program
DX: R10.A3 Flank pain, bilateral (principal); R31.9 Hematuria, unspecified; E11.40 Type 2 diabetes mellitus with diabetic neuropathy, unspecified; F43.10 Post-traumatic stress disorder, unspecified; I10 Essential (primary) hypertension; E78.00 Pure hypercholesterolemia, unspecified; M19.90 Unspecified osteoarthritis, unspecified site; Z87.442 Personal history of urinary calculi; Z87.891 Personal history of nicotine dependence; Z79.4 Long term (current) use of insulin; Z79.899 Other long term (current) drug therapy; Z88.1 Allergy status to other antibiotic agents; Z88.5 Allergy status to narcotic agent; Z88.8 Allergy status to other drugs, medicaments and biological substances
CPT/HCPCS: 80053; 81001; 83690; 85025; 96374; 96375; 99283; A9270; J1885; J2405